=== PATIENT | female | born 1940 | race Caucasian/White ===

== ENCOUNTER 2017-02-20 08:42 | Emergency (ER) | payer OTHER ==
[~2017-02-20] VITALS: Ht 157.5 cm; Wt 60.0 kg
[~2017-02-20 08:42] MED LIST: GLIP-95 PO; MTF1000T PO
[2017-02-20 08:45] VITALS: Ht 157.5 cm; Wt 60.0 kg
--- NOTE | 2017-02-20 09:19 | RADRPT ---
PROCEDURE: XR Chest. CLINICAL INDICATION: Shortness of breath . TECHNIQUE: Single frontal chest x-ray. COMPARISON: None. FINDINGS: The lungs are clear of acute infiltrates, edema, effusions, or masses. Calcific atherosclerosis of t he aorta is present.. The cardiomediastinal silhouette is unremarkable. The osseous structures are intact. IMPRESSION: No acute cardiopulmonary disease. RPTAT: GG .Jose Arguelles MD, MD Date Time Electronically viewed and signed by .Jose Arguelles MD, on 02/20/2017 09:18 .L/
[2017-02-20 09:41] LABS: MODE ROOM AIR; MetHgb Venous 0.4 %; Sample Type Blood venous; Venous COHb 0.3 %; Venous Fraction OxyHgb 33.9 %; Venous Total Hemglobin 13.1 g/dl
--- NOTE | 2017-02-20 09:44 | ERD ---
ER Documentation Chief Complaint Date/Time DATE: 02/20/17 TIME: 09:41 Chief Complaint BIBA by ambulance to room with complaint possible dizziness HPI This is a 76-year-old female who is brought in by ambulance. The patient states that she called 911 because she started to have shortness of breath and felt nauseated after being exposed to a leaking liquid underneath her refrigerator. The patient became very anxious and called 911. She denies any chest pain, no pleuritic pain, no fevers or chills, no headache. She denies any headache while in her apartment. The patient states that she has her daughter coming to help her with the refrigerator. ROS All systems reviewed and are negative except as per history of present illness. Medications Home Meds Discontinued Reported Medications Glipizide* (Glipizide*) 10 Mg Tablet, 10 MG PO DAILY, TAB 04/17/14 Metformin* (Glucophage*) 1,000 Mg Tablet, 1000 MG PO BID, TAB 04/17/14 Allergies Allergies: Coded Allergies: No Known Allergy (Unverified , 02/20/17) FmHx Family History: No diabetes Physical Exam Vitals Vital Signs Date Time Temp Pulse Resp B/P Pulse Ox O2 Delivery O2 Flow Rate FiO2 02/20/17 08:45 98.2 92 20 143/76 100 Physical Exam General: Well developed, well nourished, no acute distress, Anxious Head: Normocephalic, atraumatic. Eyes: Pupils equally reactive, EOM intact ENT: Moist mucous membranes Neck: Supple, no lymphadenopathy Respiratory: Lungs clear bilaterally, no distress Cardiovascular: RRR, no murmurs, rubs, or gallops Abdominal: Soft, non-tender, non-distended, no peritoneal signs : Deferred MSK: No edema, no unilateral swelling, 5/5 strength Neurologic: Alert and oriented, moving all extremities, normal speech, no focal weakness, no cerebellar signs Skin: No rash Psych: Anxious mood Procedures/MDM EKG, MONITORS, & DIAGNOSTIC IMAGING: EKG: I reviewed and interpreted a 12-lead EKG. Rhythm: Normal sinus rhythm Ectopy: None Intervals: Left bundle branch block that appears to be old ST segments: No elevations or depressions T waves: No contiguous inversions Chest x-ray: I reviewed and interpreted a 1 view of the chest Mediastinum: No enlargement Cardiac silhouette: No cardiomegaly Airspace: Clear lung zhang bilaterally without evidence of pneumothorax Bones: No evidence of fracture LAB INTERPRETATION: Venous blood gas showing normal carboxyhemoglobin, normal methemoglobin MEDICAL DECISION MAKING: The patient presents with a complaint of shortness of breath after being exposed to some liquid that was spilling underneath her refrigerator. This is possibly equivalent liquid but unlikely to cause significant noxious gas exposure. The patient is extremely anxious and I likely believe that anxiety is playing a role. She does not describe any chest pain or exertional symptoms that would be concerning for cardiac etiology. The patient states that the symptoms are improved and she would like to go back to her apartment to take care of the refrigerator. ER COURSE: The patient's carboxyhemoglobin is normal, chest x-ray is normal and EKG is unchanged. At this time I believe the patient can be safely discharged home. No interventions required currently. I kept the patient and/or family informed of laboratory and diagnostic imaging results throughout the emergency room course. DISPOSITION PLAN: We discussed follow up with the patient's primary care doctor within 24 to 48 hours as needed. We also discussed return to the emergency room for worsening symptoms or worsening condition. Outpatient referral: [None required] Departure Diagnosis: Primary Impression: History of exposure to noxious chemical Additional Impression: Anxiety reaction Condition: Stable Patient Instructions: Anxiety Reaction Additional Instructions: Call your primary care doctor TOMORROW for an appointment during the next 1 WEEK.Tell the racing secretary that you were referred from this facility.See the doctor sooner or return here if your condition worsens before your appointment time. JACKELYN WOODWARD MD Feb 20, 2017 09:44
[2017-02-20 10:00] VITALS: BP 132/77; PULSE 86; RESP 20; TEMP 98
== END 2017-02-20 10:58 | disposition home or self-care (01) ==
LOC: E/R 08:42
DX: F41.9 Anxiety disorder, unspecified (principal); R40.2142 Coma scale, eyes open, spontaneous, at arrival to emergency department; R40.2252 Coma scale, best verbal response, oriented, at arrival to emergency department; R40.2362 Coma scale, best motor response, obeys commands, at arrival to emergency department; Z79.84 Long term (current) use of oral hypoglycemic drugs
CPT/HCPCS: 36415; 71010; 82803; 93005